=== PATIENT | male | born 1980 | race Caucasian/White ===

== ENCOUNTER 2016-02-09 12:54 | Emergency (ER) | payer MEDICAID ==
[~2016-02-09] VITALS: Ht 167.6 cm; Wt 84.5 kg
[2016-02-09 12:57] VITALS: Ht 167.6 cm; Wt 84.5 kg
[2016-02-09] MEDS ORDERED: BAC30OI TOP (14:56)
[2016-02-09] MEDS ORDERED: DIPHTH/TET/ACEL PERTUSS (ADULT) 0.5 ML VIAL IM* ONE (15:00)
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
== END 2016-02-09 15:27 | disposition home or self-care (01) ==
LOC: FTE 12:54
DX: S00.81XA Abrasion of other part of head, initial encounter (principal); W22.8XXA Striking against or struck by other objects, initial encounter; Y92.9 Unspecified place or not applicable; Z23 Encounter for immunization
CPT/HCPCS: 90471; 90715; Z7502

== ENCOUNTER 2016-08-09 06:29 | Emergency (ER) | payer MEDICAID ==
[~2016-08-09] VITALS: Ht 167.6 cm; Wt 82.5 kg
[~2016-08-09 06:29] MED LIST: BACI28.34 TOP
[2016-08-09 06:32] VITALS: Ht 167.6 cm; Wt 82.5 kg
[2016-08-09] MEDS ORDERED: AMOXICILLIN 500 MG CAP PO ONE (07:00)
[2016-08-09] MEDS ORDERED: ACETAMINOPHEN 325 MG TAB PO ONE (07:00)
--- NOTE | 2016-08-09 07:47 | RADRPT ---
PROCEDURE: XR Chest. CLINICAL INDICATION: chest pain TECHNIQUE: Single frontal view of the chest was obtained COMPARISON: 03/07/2013 FINDINGS: The heart and mediastinum are within normal limits. The lungs are clear. There is no pleural effusion or pneumothorax. RPTAT: AA IMPRESSION: No acute disease. .Kostas Rodriguez MD, MD Date Time Electronically viewed and signed by .Kostas Rodriguez MD, MD on 08/09/2016 07:47 .S/
[2016-08-09] MEDS ORDERED: IBUP-1542 PO (07:51)
[2016-08-09] MEDS ORDERED: ACET325T33 PO (07:51)
[2016-08-09] MEDS ORDERED: AMO500 PO (07:51)
--- NOTE | 2016-08-09 08:44 | ERD ---
ER Documentation Chief Complaint Date/Time DATE: 08/09/16 TIME: 08:41 Chief Complaint "my lungs hurt", X2DAYS, DENIES COUGHING HPI Patient is a 36-year-old male with no medical problems who presents with pain in his lungs. The patient has a headache and sore throat as well. He said the symptoms for the past 6 days. He has fever. He tried ibuprofen at 6 AM. He denies cough, vomiting, or diarrhea. He has no neck stiffness. Upon review of old medical records the patient has multiple visits for various complaints. He does not currently have a primary doctor. ROS All systems reviewed and are negative except as per history of present illness. Medications Home Meds Active Scripts Acetaminophen* (Tylenol*) 325 Mg Tablet, 2 TAB PO Q8 Y for PAIN AND OR ELEVATED TEMP, #20 TAB Prov:ELEAZAR DENNEY MD 08/09/16 Ibuprofen* (Motrin*) 600 Mg Tab, 600 MG PO Q8, #30 TAB Prov:ELEAZAR DENNEY MD 08/09/16 Amoxicillin* (Amoxicillin*) 500 Mg Cap, 500 MG PO TID for 10 Days, CAP Prov:ELEAZAR DENNEY MD 08/09/16 Bacitracin* (Bacitracin Zinc Oint*) 28.35 Gm Oint, 1 APPLIC TOP BID, #1 TUB APPLI TO Prov:DEBORAH RAY PA-C 02/09/16 Allergies Allergies: Coded Allergies: No Known Drug Allergies (Verified Allergy, Unknown, 08/09/16) PMhx/Soc Medical and Surgical Hx: pt denies Medical Hx History of Surgery: No Anesthesia Reaction: No Hx Neurological Disorder: No Hx Respiratory Disorders: No Hx Cardiac Disorders: No Hx Psychiatric Problems: No Hx Miscellaneous Medical Probl: No Hx Alcohol Use: No Hx Substance Use: No Hx Tobacco Use: No Smoking Status: Never smoker FmHx Family History: No diabetes Physical Exam Vitals Vital Signs Date Time Temp Pulse Resp B/P Pulse Ox O2 Delivery O2 Flow Rate FiO2 08/09/16 06:32 101.5 101 20 131/78 97 Physical Exam Const: No acute distress Head: Atraumatic Eyes: Normal Conjunctiva ENT: Normal External Ears, Nose and Mouth. Patient has swelling of the tonsils with erythema bilaterally, no stridor over the neck Neck: Full range of motion..~ No meningismus. Resp: Clear to auscultation bilaterally Cardio: Regular rate and rhythm, no murmurs Abd: Soft, non tender, non distended. Normal bowel sounds Skin: No petechiae or rashes Back: No midline or flank tenderness Ext: No cyanosis, or edema Neur: Awake and alert Psych: Normal Mood and Affect Results 24 hrs Current Medications Medications (Trade) Dose Ordered Sig/Gene Route PRN Reason Start Time Stop Time Status Last Admin Dose Admin Acetaminophen (Tylenol Tab) 650 mg ONCE ONCE PO 08/09/16 07:00 08/09/16 07:01 DC 08/09/16 07:15 Amoxicillin (Amoxicillin) 500 mg ONCE ONCE PO 08/09/16 07:00 08/09/16 07:01 DC 08/09/16 07:15 Procedures/MDM EKG read by me: Rate/Rhythm: Regular rate and rhythm at a normal rate Intervals: Normal Impression: No evidence of ischemia or arrhythmia Chest x-ray negative per radiology. Patient is a 36-year-old male with no medical problems who presents with pain in his lungs and sore throat. I believe the patient has an acute pharyngitis. EKG and chest x-ray were negative. At this point I believe patient is stable for outpatient management. I doubt serious bacterial infection. The patient will be treated with amoxicillin for 10 day course as well as Tylenol and ibuprofen for pain and fever. The patient has no signs of epiglottitis, retropharyngeal abscess, or peritonsillar abscess. I doubt pneumonia or pneumothorax. I doubt acute coronary syndrome. I doubt pulmonary embolism or aortic dissection. The patient can return for any worsening symptoms. He should follow-up the local clinics within 24-48 hours as he does not currently have a primary doctor. Departure Diagnosis: Primary Impression: Pharyngitis Pharyngitis/tonsillitis etiology: unspecified etiology Qualified Code: J02.9 - Pharyngitis, unspecified etiology Condition: Fair Patient Instructions: Pharyngitis, Strep (Presumed) [facility] Usted se mcneill hecho un examen mdico de control que le indica que no est en larissa condicin que requiera tratamiento urgente en el Departamento de Emergencia. Un estudio ms profundo y el tratamiento de cutler condicin pueden esperar sin ningn riesgo hasta que usted sea atendida/o en el consultorio de cutler mdico o larissa cl ceferino. Es responsabilidad suya arreglar larissa amanda para el seguimiento del katie. MANEJO DE CONDICIONES NO URGENTES EN EL FUTURO 1) Si usted tiene un mdico de atencin primaria: Usted debera llamar a cutler mdico de atencin primaria antes de venir al departamento de emergencia. Despus de las horas de consultorio, cutler doctor o cutler asociado/a est disponible por telfono. El mdico o enfermero de cecelia en el servicio telefnico puede asesorarle por selvin medio para atender el problema, o katie contrario se puede programar larissa amanda. 2) Si usted no tiene un mdico de atencin primaria: Llame al mdico o clnica de referencia que aparece abajo rhys las horas de consultorio para hacer larissa amanda para que le vean. CLINICAS: [place] [id number] [phone] [facility] [phone] [facility] [facility] [phone] [facility] [place] [id number] [phone] [facility] [place] [id number] [phone] [facility]. [phone] Additional Instructions: Llame al doctor MAANA y leesa larissa AMANDA PARA DENTRO DE 1-2 ERIC.Dgale a la secretaria que nosotros le instruimos hacer esta amanda.Avise o llame si cutler condicin se empeora antes de la amanda. Regresa aqui si peor o no mejor. ELEAZAR DENNEY MD Aug 09, 2016 08:43
== END 2016-08-09 08:00 | disposition home or self-care (01) ==
LOC: FTE 06:29
DX: J02.9 Acute pharyngitis, unspecified (principal); R07.9 Chest pain, unspecified
CPT/HCPCS: 71010; 93005; Z7502; Z7610